=== PATIENT | female | born 1990 | race Two or more races ===

== ENCOUNTER 2016-07-16 14:45 | Outpatient (CLI) | payer OTHER ==
--- NOTE | 2016-07-16 16:33 | US ---
Exam: Obstetric ultrasound biophysical profile COMPARISON: 07/01/2016 INDICATION: Suspected IUGR. MGA 37 weeks 6 days. Findings: Biophysical profile ultrasound with SD ratio was obtained. Real-time sonographic imaging demonstrated a single live intrauterine in cephalic presentation with a heart rate of 157 bpm. BENITA is 17.0. S/D ratio is 2.3-2.5. Biophysical profile is as follows: breathing movements: 2 motion: 2 tone: 2 Amniotic fluid volume: 2 Total score 8 out of 8. IMPRESSION: 1. Biophysical profile score is normal at 8 out of 8. 2. Single live intrauterine in cephalic presentation with a heart rate of 157 beats per minute. 3. BENITA 17.0 cm. 4. S/D ratio 2.3-2.5 Report called to Aracelis Kirby CNM, 1629 hours 07/16/2016.
--- NOTE | 2016-07-16 17:02 | PDOC36 ---
Provider Note Subject: Triage Note Note: Cheri is a at 37 weeks and 6 days with a hx of IUGR and a non-reactive NST in clinic today. She was sent for a BPP and this was 8/8, S/D ratio 2.3 and BENITA 17. NST was reactive with baseline at 145, accels, no decels and moderate variability. Vital signs all normal. We reviewed all of the results and reassured her baby is well. F/U Thursday for her routine OB appointment. Discharged home with paperwork of when to return.
== END 2016-07-16 16:43 | disposition home or self-care (01) ==
LOC: FBC 14:45 → FBCOUT 14:45
PROVIDERS: ATTEND Advanced Practice Midwife
DX: O76 Abnormality in fetal heart rate and rhythm complicating labor and delivery (principal); Z3A.37 37 weeks gestation of pregnancy

== ENCOUNTER 2016-07-18 13:46 | Outpatient (CLI) | payer OTHER ==
[2016-07-18 14:04] VITALS: BMI 27.4
--- NOTE | 2016-07-18 14:48 | US ---
BIOPHYSICAL PROFILE COMPARISON: 07/16/2016 HISTORY: Gestational age 30 weeks 1 day. Nonreactive nonstress test. FINDINGS: breathing movements: 2 motion: 2 tone: 2 Amniotic fluid volume: 2 (BENITA 13.1 cm) heart rate: 138 bpm Presentation: Cephalic IMPRESSION: 1. Normal biophysical profile 8 out of 8. 2. Amniotic fluid volume 13.1 cm. The results were called to the [facility], 07/18/2016 at 14:45
== END 2016-07-18 15:20 | disposition home or self-care (01) ==
LOC: FBCOUT 13:46 → FBC 13:47 → FBCOUT 15:20
PROVIDERS: ATTEND Advanced Practice Midwife
DX: O76 Abnormality in fetal heart rate and rhythm complicating labor and delivery (principal); Z3A.30 30 weeks gestation of pregnancy; O36.5930 Maternal care for other known or suspected poor fetal growth, third trimester, not applicable or unspecified
CPT/HCPCS: 83036; 76819; 59025; 81002; G0463

== ENCOUNTER 2016-07-23 02:24 | Inpatient (IN) | payer OTHER ==
[2016-07-23 19:39] VITALS: BMI 27.2
[2016-07-23] MEDS ORDERED: LIDOCAINE 1% (PRES FREE) 30 ML VIAL ONE (19:40)
[2016-07-23] MEDS ORDERED: IV START KIT ONE (19:40)
[2016-07-23] MEDS ORDERED: OXYTOCIN IN LR 500 ML IV ONE (19:40)
[2016-07-23] MEDS ORDERED: LIDOCAINE Viscous 2% 15 ML UDCUP ONE (19:40)
[2016-07-23] MEDS ORDERED: OXYTOCIN 10 UNITS/ML VIAL ONE (19:40)
[2016-07-23] MEDS ORDERED: PUMP TUBING ONE (19:40)
[2016-07-23] MEDS ORDERED: MINERAL OIL 25 ML BOT ONE (19:40)
[2016-07-23] MEDS ORDERED: LACTATED RINGERS 1,000 ML ONE (19:41)
[2016-07-23] MEDS ORDERED: SODIUM CHLORIDE 0.9% FLUSH 10 ML ONE (19:41)
[2016-07-23] MEDS ORDERED: OXYTOCIN 10 UNITS/ML VIAL IM ONE (20:09)
[2016-07-23] MEDS ORDERED: MISOPROSTOL 25 MCG TABLET SL ONE (20:11)
[2016-07-23] MEDS ORDERED: PENICILLIN G POTASSIUM 5 MMU in NS 0.9% (MINI-BAG PLUS) 100 ML IV ONE (20:11)
[2016-07-23] MEDS ORDERED: MISOPROSTOL 25 MCG TABLET ONE (20:14)
[2016-07-23 20:54] LABS: MEAN CELL VOLUME 83.7 fl (81.0-99.0); MEAN CORPUSCULAR HEMOGLOBIN 27.1 pg (27.0-31.0); MEAN CORPUSCULAR HGB CONC 32.4 g/dl (33.0-37.0); RED CELL DISTRIBUTION WIDTH 13.5 % (11.5-14.5)
--- NOTE | 2016-07-23 21:08 | PCMAN ---
OB Admission Note - History : 3 Term: 1 : 0 Abortions (S&E): 1 Livin Gestational Age (weeks): 38 Days (#/7): 6 Admit Cervical Dilation:: 2-3 Admit Cervical Effacement (%):: 20 Admit Station:: -1 Admit Presentaton:: Vertex confirmed with Bedside Ultrasound Membrane Status: Intact Contractions: Yes Contraction Frequency:: irregular Heart Rate:: 145 (moderate variability, pos accels, neg decels) Status:: Fetus Cat 1 EFW:: 6.5lbs Summary of Course:: Cheri is a 26yo at 38w6d presenting for IOL for IUGR per MFM reccomendation. She initiated care at 14 weeks with the midwives and participated in Centering care. She had a total of 17 visits. Her initial BMI was 25.7 with a weight of 127. She gained a total of 9lbs. She declined early genetic screening. 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 6lb 1oz female. No complications. No other inverter and clipper surgeries Medical Hx: Last Pap 07/2015 WNL Has one inverted nipple, used a shield with last reports HTN at end of first Surg Hx: none Social: No Hx of alcohol, tobacco or recreational substance use - Labs Blood Type: O (+) positive Hct/Hgb:: 11.0/32.1 Rubella Status: Non-immune GBS Status: Positive Abnormal Labs: Rubella Non-Immune/Equivocal (Non-immune) Other Labs:: 1hr GTT abnormal, 3hrGTT WNL - Review of Systems Complete ROS is negative. She denies HICKS's, visual changes, epigastric pain, LOF , abdominal pain, contractions, and vag bleeding. - Physical Exam Psych/Mental Status: Mood/Affect Appropriate, Judgment/Insight Intact Neurological: Grossly Intact, Alert, Oriented x 4 HEENT: Atraumatic Lungs: Clear to Auscultation Bilaterally, Normal Air Movement Cardiovascular: Regular Rate and Rhythm, Normal S1, Normal S2 Abdomen: Normal Bowel Sounds Genitourinary: Normal Female Genitalia Rectal Exam: Deferred Extremities: Full ROM, Normal Pulses Skin: Normal Color - Problems (1) Symmetric IUGR complicating , antepartum Qualifiers: Fetus number: single or unspecified fetus Trimester: third trimester Qualifier Code: (O36.5930) Maternal care for other known or suspected poor growth, third trimester, not applicable or unspecified Status: Acute Code: O36.5990 Assessment/Plan: A: Undelivered IUP at 26yo at 38w6d Symmetric IUGR GBS pos Not in Labor Winter Score 6 Intact Membranes Afebrile P: Admit to FBC for IOL Cervical ripening with 25mcg misoprostol SL Place saline lock Initiate PCN prophylaxis with onset of active labor or rupture of membranes. Patient plans to labor unmedicated Plans for position changes, walking hydrotherapy to manage intensity of labor. Recheck in 4 hours or when clinically indicated. Anticipate active labor and .
[2016-07-23] MEDS ORDERED: LACTATED RINGERS 1,000 ML IV SCH (22:25)
[2016-07-24] MEDS ORDERED: MISOPROSTOL 25 MCG TABLET SL ONE ×2 (00:36→04:45)
[2016-07-24] MEDS ORDERED: HYDROXYZINE PAMOATE 50 MG CAPSULE PO ONE (00:37)
--- NOTE | 2016-07-24 00:41 | PDOC36 ---
Provider Note Subject: Labor Progress Note Note: S: Cheri reports feeling the contractions. She is able to talk through them. Denies LOF, vag bleeding. O: VS BP 110/72 P81 T 98.3F BSL 165 moderate variability, pos accels, neg decels Ctx q 3-6 mins lasting 60-110sec, palpating mild Membranes Intact SVE unchanged, cervix posterior 2-3/20%/-1 A: Undelivered IUP at 26yo at 38w6d Symmetric IUGR GBS pos Latent Labor Winter Score 5 Intact Membranes Afebrile P: Admit to FBC for IOL Continue cervical ripening with second dose of misoprostol SL now increase to 50 mcg. Fluid bolus as baseline has increased Discussed trying to sleep and conserve energy for labor. Offered medication to assist with sleep, patient declined. Initiate PCN prophylaxis with onset of active labor or rupture of membranes. Patient plans to labor unmedicated Plans for position changes, walking hydrotherapy to manage intensity of labor. Recheck in 4 hours or when clinically indicated. Anticipate active labor and .
[2016-07-24] MEDS ORDERED: LACTATED RINGERS 1,000 ML IV SCH ×2 (00:42→10:30)
[2016-07-24] MEDS: LACTATED RINGERS 1,000 ML IV PRN ×2 (00:49→03:56)
--- NOTE | 2016-07-24 04:56 | PDOC36 ---
Provider Note Subject: Labor Progress Note Note: S: Cheri reports being able to sleep for the last hour. Denies LOF, vag bleeding. O: VS BP 116/70 P91 T36.7C BSL 150 moderate variability with periods of minimal variability. pos accels, no decels Ctx q 4-6 mins lasting 50-80 sec, palpating mild Membranes Intact SVE: cervix posterior 2-3/50%/-2 A: Undelivered IUP at 26yo at 38w6d Symmetric IUGR GBS pos Fetus Cat 2 Latent Labor Winter Score 5 Intact Membranes Afebrile P: Continue cervical ripening with third dose of misoprostol SL at 50 mcg. Continue with IV fluids, position changes, intrauterine resus measures PRN. Cheri is going to eat some jello and have some juice. Discussed trying to sleep and conserve energy for labor. Initiate PCN prophylaxis with onset of active labor or rupture of membranes. Patient plans to labor unmedicated. Plans for position changes, walking & hydrotherapy to manage intensity of labor. Recheck in 4 hours or when clinically indicated. Anticipate active labor and .
[2016-07-24] MEDS ORDERED: PENICILLIN G POTASSIUM 5 MMU VIAL ONE (08:11)
[2016-07-24] MEDS ORDERED: NS 0.9% (MINI-BAG PLUS) 100 ML IV ONE (08:11)
[2016-07-24] MEDS ORDERED: PENICILLIN G POTASSIUM 5 MMU in NS 0.9% (MINI-BAG PLUS) 100 ML IV ONE (08:15)
[2016-07-24] MEDS: LACTATED RINGERS 1,000 ML IV SCH ×2 (09:37→15:33)
[2016-07-24] MEDS ORDERED: OXYTOCIN IN LR 500 ML IV PRN (10:18)
[2016-07-24] MEDS ORDERED: PENICILLIN G 3 MIL UNIT PREMIX 50 ML IV ONE ×2 (12:09→16:33)
[2016-07-24] MEDS: PENICILLIN G 3 MIL UNIT PREMIX 3 MMU in Premix (D5W) 50 ml 1 EACH IV SCH ×2 (12:16→16:38)
--- NOTE | 2016-07-24 13:45 | PDOC36 ---
Provider Note Subject: Labor Progress Note Note: Note delayed due to involvement in patient care: HPI: After three doses of misporostol, Cheri continued to labor denton regularly q 2-4 minutes throughout the morning. Unable to start Pitocin augmentation with that contraction frequency. As she was starting to feel the contractions she was managed expectantly. There was also concern for initiating Pitocin with periods of minimal variability. With IV hydration, variability improved. First dose of PCN was administered at 0830 as it was thought that SROM had occurred. Neg nitrazine and neg ferning at the time. Considered to be intact. S: Cheri is walking and breathing through contractions. They feel much stronger and she is requesting epidural pain management. O: VS BP 116/79 P93 T97.3F BSL 145 moderate variability with periods of minimal variability. no accels, no decels Ctx q 1-4 mins lasting 50-70 sec, palpating moderate Membranes Intact SVE at 1220 4cm/60%/-2 A: Undelivered IUP at 26yo at 38w6d VSS Symmetric IUGR GBS pos, s/p 2 doses PCN prophylaxis Fetus Cat 2 Latent Labor moving toward active Intact Membranes Afebrile P: Continue with IV fluids, position changes, intrauterine resus measures PRN. Discussed wanting to time epidural so that it does not slow labor progress. She plans to try th etub and get epidural pain management when the tub is no longer effective. IV fluid bolus now to address periods of minimal variability. Recheck in 4 hours or when clinically indicated. Anticipate active labor and .
[2016-07-24] MEDS ORDERED: EPIDURAL PUMP SET ONE (14:32)
[2016-07-24] MEDS ORDERED: FENTANYL/ROPIVACAINE EPIDURAL 250 ML EP ONE (14:33)
[2016-07-24] MEDS ORDERED: METOCLOPRAMIDE HCL 5 MG/ML 2ML VIAL IV PRN (15:15)
[2016-07-24] MEDS ORDERED: NALBUPHINE HCL 20 MG/ML AMP IV PRN (15:15)
[2016-07-24] MEDS ORDERED: SODIUM CHLORIDE 0.9% 500 ML IV PRN ×2 (15:15→18:12)
[2016-07-24] MEDS ORDERED: DIPHENHYDRAMINE HCL 50 MG/1 ML VIAL IV PRN (15:15)
[2016-07-24] MEDS ORDERED: ONDANSETRON 4 MG/2ML 2 ML VIAL IV PRN (15:15)
[2016-07-24] MEDS ORDERED: NALOXONE HCL 0.4 MG/ML VIAL IV PRN (15:15)
[2016-07-24] MEDS ORDERED: EPHEDRINE SULFATE 50 MG/ML 1ML VIAL IV PRN (15:15)
[2016-07-24] MEDS ORDERED: FENTANYL/ROPIVACAINE EPIDURAL 250 ML EP SCH (15:15)
[2016-07-24] MEDS ORDERED: LACTATED RINGERS 500 ML IV PRN (15:15)
[2016-07-24] MEDS ORDERED: ROPIVACAINE 0.5% 30 ML VIAL ONE (15:25)
[2016-07-24] MEDS ORDERED: EPIDURAL PROCEDURE TRAY ONE (15:25)
[2016-07-24] MEDS ORDERED: LACTATED RINGERS/OXYTOCIN 30 334 ML IV ONE (17:04)
[2016-07-24] MEDS ORDERED: METHYLERGONOVINE MALEATE 0.2 MG/ML 1ML AMP ONE ×2 (17:21→17:26)
[2016-07-24] MEDS ORDERED: MISOPROSTOL 200 MCG TABLET ONE (17:21)
[2016-07-24] MEDS ORDERED: MISOPROSTOL 200 MCG TABLET PO ONE (17:24)
[2016-07-24] MEDS ORDERED: D5LR 1,000 ML IV ONE (17:54)
[2016-07-24] MEDS ORDERED: SODIUM CHLORIDE 0.9% 500 ML BAG IV PRN (18:12)
[2016-07-24] MEDS: SODIUM CHLORIDE 0.9% 1,000 ML IV SCH ×2 (18:18→21:15)
[2016-07-24 18:30] LABS: ABSOLUTE NEUTROPHIL COUNT 15.6 K/mm3 (1.8-7.7); BASO # 0.1 K/mm3 (0.0-0.2); BASO % 0.2 % (0.2-1.0); HEMATOCRIT 28.3 % (37.0-47.0); HEMOGLOBIN 8.8 gm/l (12.0-16.0); IMM NEUT # 0.1 K/mm3 (0-0.2); IMM NEUT% 0.7 % (0-1); LYMPH % 14.7 % (15-45); MEAN CELL VOLUME 87.9 fl (81.0-99.0); MEAN CORPUSCULAR HEMOGLOBIN 27.3 pg (27.0-31.0); MEAN CORPUSCULAR HGB CONC 31.1 g/dl (33.0-37.0); MEAN PLATELET VOLUME 10.8 fl (7.4-10.4); MONO # 1.5 (0.0-0.8); MONO % 7.4 % (4-12); PLATELET COUNT 219 K/mm3 (130-400); RED CELL DISTRIBUTION WIDTH 13.9 % (11.5-14.5)
[2016-07-24] MEDS ORDERED: D5W 1,000 ML IV SCH (18:34)
[2016-07-24] MEDS ORDERED: D5LR 1,000 ML IV SCH (18:45)
--- NOTE | 2016-07-24 19:00 | PDOC36 ---
[id number] delivery. findings: 1cm laceration extending lateral and superior from urethral opening to clitoris, and actively bleeding. patient had epidural analgesia and a midline laceration already repaired. labial laceration repair included a continuous locking suture of 3-0 vicryl materal to close the laceration and then an additional figure of eight suture at the inferior portion which resulted in closure and complete hemostasis. bladder catheterized with a straight cath resulting in clear yellow urine, then the catheter was removed. following repair, patient had generalized tremors, felt weak but was responsive, and tachycardia from post hemorrhage estimated by ms bettencourt to be 1000cc prior to my arrival. iv fluids were changed from ringers lactate to d5lr and a second iv was started. patient typed for one unit of packed cells , but i recommended holding the unit of blood as the patient's blood pressure stabilized with both iv fluids running. heart rate 120-130. should the patient continue with tachycardia after iv fluids, then one unit of rbcs should be given , followed by a repeat h&h post transfusion, if less that hemoglobin of 8 after first unit of blood, then a second unit of rbcs may be given on 07/25/16. a bangura catheter should also be inserted. at this point, with the patient stable and both ms bettencourt and ms aileen duke comfortable with the management and patient 's status, i excused myself from the room.
[2016-07-24] MEDS ORDERED: ACETAMINOPHEN 500 MG TABLET PO ONE (19:29)
[2016-07-24] MEDS ORDERED: CEFAZOLIN SODIUM 2 GRAM PREMIX 2 G in Premix (D5W) 100 ml 1 EACH IV ONE ×2 (19:29→20:30)
[2016-07-24] MEDS ORDERED: BLOOD Y PLUMSET W/CASSETTE ONE (20:18)
[2016-07-24] MEDS ORDERED: DOCUSATE SODIUM 100 MG CAPSULE PO PRN (20:28)
[2016-07-24] MEDS ORDERED: MEASLES,MUMPS&RUBELLA VACCINE 0.5 ML VIAL SUB-Q V ONE (20:28)
[2016-07-24] MEDS ORDERED: ACETAMINOPHEN 325 MG TABLET PO PRN (20:28)
[2016-07-24] MEDS ORDERED: LANOLIN 50 APPLIC/7G TUBE TP PRN (20:28)
[2016-07-24] MEDS ORDERED: OXYCODONE/ACETAMINOPHEN 5/325 MG TABLET PO PRN (20:28)
[2016-07-24] MEDS ORDERED: BENZOCAINE/MENTHOL 60 APPLIC/BOT TP PRN (20:28)
[2016-07-24] MEDS ORDERED: CALCIUM CARBONATE 500 MG TAB.CHEW PO PRN (20:28)
[2016-07-24] MEDS ORDERED: CEFAZOLIN SODIUM 2 GRAM DUPLEX 50 ML IV ONE (20:30)
[2016-07-24] MEDS ORDERED: LACTATED RINGERS 1,000 ML ONE (20:34)
[2016-07-25] MEDS: LACTATED RINGERS 1,000 ML IV SCH ×2 (00:26→03:53)
[2016-07-25] MEDS: IBUPROFEN 800 MG TABLET PO PRN ×2 (01:00→13:35)
[2016-07-25] MEDS: PENICILLIN G 3 MIL UNIT PREMIX 3 MMU in Premix (D5W) 50 ml 1 EACH IV SCH (03:52)
[2016-07-25 10:21] LABS: HEMATOCRIT 25.3 % (37.0-47.0)
--- NOTE | 2016-07-25 14:00 | PDOC44 ---
- Subjective Day: 1 well. Got up to bathroom without dizziness. Reports Pain Tolerable, Reports , Reports Lochia Moderate - Objective Temp Pulse Resp BP Pulse Ox 98.2 F 94 16 104/56 99 07/25/16 13:14 07/25/16 13:14 07/25/16 13:14 07/25/16 13:14 07/25/16 05:00 Lab Results 07/25/16 07/24/16 10:05 18:20 WBC 20.3 H RBC 3.22 L Hgb 8.0 L 8.8 L D Hct 25.3 L 28.3 L Plt Count 219 07/24/16 07/23/16 18:20 19:45 MCHC 31.1 L Neut % (Auto) 77.0 H Lymph % (Auto) 14.7 L Absolute Neuts (auto) 15.6 H Eosinophils % 0.0 L Crossmatch See Detail Current Medications Generic Name Dose Route Start Last Admin Trade Name Freq PRN Reason Stop Dose Admin Acetaminophen 325 - 650 mg 07/24/16 20:28 Tylenol PO Q4H PRN Pain (Mild) Benzocaine/Menthol 1 applic 07/24/16 20:28 07/25/16 01:00 Dermoplast TP 1 bot PRN PRN Administration Patient Comfort Calcium Carbonate/Glycine 500 - 1,000 mg 07/24/16 20:28 Tums PO BID PRN Indigestion Docusate Sodium 100 mg 07/24/16 20:28 Colace PO DAILY PRN Comfort Emollient Ointment 1 applic 07/24/16 20:28 [id number] TP PRN PRN sore nipples Ibuprofen 800 mg 07/24/16 20:28 07/25/16 13:35 Motrin PO 800 mg Q6H PRN Administration Pain (Mild) Oxycodone/Acetaminophen 1 - 2 tab 07/24/16 20:28 Percocet 5/325 PO Q4H PRN Pain (Moderate) Sodium Chloride 10 ml 07/24/16 20:28 07/24/16 22:28 Normal Saline 10ml Flush IV 10 ml PRN PRN Administration IV Flush Sodium Chloride 10 ml 07/25/16 01:00 07/25/16 03:07 Normal Saline 10ml Flush IV 10 ml Q8HR GADIEL Administration - Physical Exam General: Afebrile Psych/Mental Status: Mood/Affect Appropriate, Bonding Well Breast: Soft, Skin intact, Nipples Intact Fundus: Firm, Midline, Below Umbilicus Genitourinary: Normal Female Genitalia, Edema (mild edema) Lochia: Moderate Rectal Exam: Deferred - Problems:Assessment/Plan (1) care and examination of lactating mother Status: Acute Assessment/Plan: A; Stable with good latch P: Discharge tomorrow (2) hemorrhage, condition Status: Acute Assessment/Plan: A: S/P hemorrhage H and H 8.0/25.3 after transfusion Tolerated ambulation to bathroom without dizziness P: Had 1 unit PRBCs Continue to increase activity to evaluate activity tolerance Disposition: Stable, Anticipate DC Home Tomorrow
--- NOTE | 2016-07-26 08:08 | PCMDEL ---
Delivery Note - Labor 1st stage (hr/min):: 7hrs 6 mins 2nd stage (hr/min):: 34 mins 3rd stage (hr/min):: 9 mins Total (hr/min):: 7hrs 40 mins Pushed (hr/min):: 26 mins - Delivery Delivery (Date): 07/24/16 Delivery (Time): 17:04 Infant Gender: Female Weight: 6 lb 7 oz Presentation: Cephalic Position: OA (to LOT) Umbilical Cord: 3 Vessel Delayed Cord Clamping:: > 3 min 1 Minute Total: 9 5 Minute Total: 10 Placenta:: shultze postion, grossly intact 3vc EBL:: 1200 Perineum:: 2nd degree perineal laceration repaired with 3-0 vicryl and 4-0 vicryl. actively bleeding periclitoral laceration, repaired Suture:: 3-0 vicryl and 4-0 chromic Anesthesia/Meds:: epidural anesthesia Length ROM:: 16 minutes Comments:: Stage One: Cheri is a 26 yo who presented to L&D at 38weeks 6 days on 07/23/16 for IOL for IUGR per [facility] recommendation. She had three doses of misoporstol for cervical ripening and then progressed to active labor without any additional augmentation. She was GBS positive and received adequate prophylaxis. Active labor began around 0930 on 07/24 and she labored well through the morning and early afternoon. At 1500 she received an epidural labor anesthesia. She was supported by her Lucho and her mother Shirin. At 1630 she was found to be complete 0 station with a bulging bag of water. At 1648 AROM for clear fluid. FHTs were category 1 & 2 throughout first stage for periods of minimal variability. Stage 2: Cheri pushed effectively with contractions. Rapid descent was noted over 3 contractions. Controlled delivery of the head OA to LOT. Shoulders came easliy with the next push. No nuchal cord was noted. Infant was vigorous and crying as she was placed on the maternal abdomen. Apgars 9 & 10. Weigth 6lbs 10oz. Delayed cord clamping by Lucho, the father at 3 minutes. Stage 3: Gentle traction was applied to the cord with the Barrow Garcia maneuver and IV Pitocin was initiated. Cord blood obtained. Brisk bleeding was noted. The placenta delivered easily and grossly intact, Shultze position. Fundus firm and midline. Bleeding still noted at the introitus. A manual sweep of the uterus revealed no clots but the lower uterine segment felt boggy. 800 misoprostol was given. Fundus firmed up and remained firm and midline. BLeeding still evident. Inspection of the vagina and perineum revealed 2nd degree perinea laceration and a periurethral/periclitoral laceration with an actively bleeding vessel. Pressure applied and held on the clitoral laceration and Dr. Luciano was invited in to assist with the repair due. Waiting for him to arrive, pressure was maintained on the periclitoral lac by the RN and the perineal laceration was repaired with good approximation and hemostasis. Dr. Luciano successfully repaired the bleeding laceration, straight cath placed successfully, to assess the integrity of the urethra - no compromise noted. At this point lacerations were hemostatic. Fundus remained firm and midline. Total QBL was 1200mL. While Dr Luciano was completing the periclitoral laceration, Cheri began to become symptomatic relative to the blood loss. She began shaking, stated she was feeling cold, dizzy. O2 was placed, the head of the bed was lowered, smelling salts and stimulation were used. Cheri remained conscious and aware. Fluids were opened up, a second IV was placed, and the BP cuff was moved to her ankle to get an accurate reading. Her fundus and pad were checked and no further bleeding was noted. Vigorous shaking continued, warm blankets and the bear hugger were applied. With the increase in fluids her BP remained stable, still tachycardic, and slow improvement was noted. Order was placed to transfuse one unit of blood and repeat CBC two hours later to address maternal symptoms. Henderson catheter placed at this time. Shortly after delivery, Cheri had a temperature of 103.0F, likely from the oral misoprostol. This was treated with 1000mg tylenol. 2g ancef ordered PP because of the uterine sweep. Count completed, all sharps accounted for, missing one lap. No laps were used for the uterine sweep, no vaginal packing during the repair. Infant was placed skin to skin with the father during the recovery with plan to transfer back to mother as soon as she felt ready to receive the infant.
[2016-07-26 08:24] VITALS: BP 100/59
[2016-07-26] MEDS: IBUPROFEN 800 MG TABLET PO PRN (09:45)
--- NOTE | 2016-07-26 11:26 | PDOC39B ---
Hospital Course: ADMIT DATE: 07/23/16 DISCHARGE DATE: 07/26/2016 ADMISSION DIAGNOSES: Active Labor PROCEDURES: HISTORY OF PRESENT ILLNESS: 26 year old G3 T1 L1 at 39 weeks 0 days presenting with active labor. HOSPITAL COURSE: Stage One: Cheri is a 26 yo who presented to L&D at 38weeks 6 days on 07/23/16 for IOL for IUGR per [facility] recommendation. She had three doses of misoporstol for cervical ripening and then progressed to active labor without any additional augmentation. She was GBS positive and received adequate prophylaxis. Active labor began around 0930 on 07/24 and she labored well through the morning and early afternoon. At 1500 she received an epidural labor anesthesia. She was supported by her Lucho and her mother Shirin. At 1630 she was found to be complete 0 station with a bulging bag of water. At 1648 AROM for clear fluid. FHTs were category 1 & 2 throughout first stage for periods of minimal variability. Stage 2: Cheri pushed effectively with contractions. Rapid descent was noted over 3 contractions. Controlled delivery of the head OA to LOT. Shoulders came easliy with the next push. No nuchal cord was noted. Infant was vigorous and crying as she was placed on the maternal abdomen. Apgars 9 & 10. Weigth 6lbs 10oz. Delayed cord clamping by Lucho, the father at 3 minutes. Stage 3: Gentle traction was applied to the cord with the Barrow Garcia maneuver and IV Pitocin was initiated. Cord blood obtained. Brisk bleeding was noted. The placenta delivered easily and grossly intact, Shultze position. Fundus firm and midline. Bleeding still noted at the introitus. A manual sweep of the uterus revealed no clots but the lower uterine segment felt boggy. 800 misoprostol was given. Fundus firmed up and remained firm and midline. BLeeding still evident. Inspection of the vagina and perineum revealed 2nd degree perinea laceration and a periurethral/periclitoral laceration with an actively bleeding vessel. Pressure applied and held on the clitoral laceration and Dr. Luciano was invited in to assist with the repair due. Waiting for him to arrive, pressure was maintained on the periclitoral lac by the RN and the perineal laceration was repaired with good approximation and hemostasis. Dr. Luciano successfully repaired the bleeding laceration, straight cath placed successfully, to assess the integrity of the urethra - no compromise noted. At this point lacerations were hemostatic. Fundus remained firm and midline. Total QBL was 1200mL. While Dr Luciano was completing the periclitoral laceration, Cheri began to become symptomatic relative to the blood loss. She began shaking, stated she was feeling cold, dizzy. O2 was placed, the head of the bed was lowered, smelling salts and stimulation were used. Cheri remained conscious and aware. Fluids were opened up, a second IV was placed, and the BP cuff was moved to her ankle to get an accurate reading. Her fundus and pad were checked and no further bleeding was noted. Vigorous shaking continued, warm blankets and the bear hugger were applied. With the increase in fluids her BP remained stable, still tachycardic, and slow improvement was noted. Order was placed to transfuse one unit of blood and repeat CBC two hours later to address maternal symptoms. Henderson catheter placed at this time. Shortly after delivery, Cheri had a temperature of 103.0F, likely from the oral misoprostol. This was treated with 1000mg tylenol. 2g ancef ordered PP because of the uterine sweep. Count completed, all sharps accounted for, missing one lap. No laps were used for the uterine sweep, no vaginal packing during the repair. was placed skin to skin with the father during the recovery with plan to transfer back to mother as soon as she felt ready to receive the infant. Recovery Cheri has a steady recovery. She remains asymptomatic despite anemia and hemorrhage. She is up to void ad koffi without dizziness or lightheadedness. She is feeling increased fatigue, we reviewed this is normal given anemia and recovery. She will take iron bid and colace as needed over the next couple of weeks. She is without issue. By day of discharge the patient is stable, well and ready to go home. - Physical Exam Vital Signs: Temp Pulse Resp BP Pulse Ox 97.6 F 72 16 100/59 99 07/26/16 08:23 07/26/16 08:23 07/26/16 08:23 07/26/16 08:23 07/25/16 05:00 General: Afebrile Psych/Mental Status: Mood/Affect Appropriate, Judgment/Insight Intact, Bonding Well Neurological: Grossly Intact, Alert, Oriented x 4, Normal Gait, Normal Speech Lungs: Clear to Auscultation Bilaterally Cardiovascular: Regular Rate and Rhythm Breast: Soft, Skin intact, Nipples Intact Fundus: Firm, Midline, Below Umbilicus Abdomen: Normal Bowel Sounds Genitourinary: Normal Female Genitalia (well approximated, hemostatic) Lochia: Light Extremities: Full ROM Skin: Normal Color, Warm, Dry, Intact - Discharge Diagnosis (1) (normal spontaneous vaginal delivery) Status: Acute Assessment/Plan: A: PPD: #2 S/P and hemorrhage (1 unit PRCBCs) H and H 8.0/25.3 after transfusion, redraw today prior to discharge pending Up ad koffi and tolerating ambulation to bathroom without dizziness P: Reviewed warning s/s and went to call CNMs. Reviewed and hemorrhage, questions answered Encouraged lots of rest and hydration over the next two-six weeks Continue to increase activity to evaluate activity tolerance RTC in 2wks, appt given, and 6wks, plans nexplanon for BCM - Discharge Plan Condition: Stable Disposition: Home Instruction Forms: Vaginal Discharge Instructions Additional Instructions: Midwifery 'After the ' handout given to patient. Prescriptions: Docusate Sodium [Colace] 250 mg PO DAILY PRN #14 cap PRN Reason: Constipation FERROUS SULFATE (65 Fe) [IRON FERROUS SULFATE 325 MG TABLET (SHF)] 325 mg PO BID #60 tablet Hydrocodone Bit/Acetaminophen [NORCO 5/325 MG TABLET (SHF)] 1 - 2 tab PO Q4H PRN #20 tablet PRN Reason: Pain Discharge Medications: Take Iron (ferrous sulfate) twice a day. Once in the morning (prior to breakfast , with vit. C) and once in the evening (also with vit. C if possible). Continue to take vitamin in the afternoon. [employer] for pain as needed. If stopping the [employer], take Tylenol instead. Continue to take ibuprofen q 6hrs as needed for pain. Take Colace as needed for constipation. Follow-Up: Natanael Coyne CNM [Certified Nurse Surveying Teacher] - 08/08/16 1:20 pm
[2016-07-26 13:32] LABS: HEMATOCRIT 24.8 % (37.0-47.0); HEMOGLOBIN 7.9 gm/l (12.0-16.0)
== END 2016-07-26 14:05 | disposition home or self-care (01) | DRG 774 ==
LOC: EDSTATUS 02:24 → FBC 19:07
PROVIDERS: ADMIT Advanced Practice Midwife; ATTEND Obstetrics & Gynecology
PROC: 10E0XZZ Delivery of Products of Conception, External Approach (ICD-10-PCS; principal; 2016-07-25)
PROC: 0KQM0ZZ Repair Perineum Muscle, Open Approach (ICD-10-PCS; 2016-07-25)
PROC: 0TQD0ZZ Repair Urethra, Open Approach (ICD-10-PCS; 2016-07-25)
PROC: 30233N1 Transfusion of Nonautologous Red Blood Cells into Peripheral Vein, Percutaneous Approach (ICD-10-PCS; 2016-07-25)
PROC: 00HU33Z Insertion of Infusion Device into Spinal Canal, Percutaneous Approach (ICD-10-PCS; 2016-07-25)
PROC: 10907ZC Drainage of Amniotic Fluid, Therapeutic from Products of Conception, Via Natural or Artificial Opening (ICD-10-PCS; 2016-07-25)
DX: O36.5930 Maternal care for other known or suspected poor fetal growth, third trimester, not applicable or unspecified (principal); O72.1 Other immediate postpartum hemorrhage; O71.5 Other obstetric injury to pelvic organs; O99.824 Streptococcus B carrier state complicating childbirth; O63.0 Prolonged first stage (of labor); O70.1 Second degree perineal laceration during delivery; O90.81 Anemia of the puerperium; Z3A.39 39 weeks gestation of pregnancy; Z37.0 Single live birth